=== PATIENT | male | born 1985 | race Caucasian/White ===

== ENCOUNTER 2022-01-10 23:31 | Emergency (ER) | payer BC ==
[2022-01-10 23:59] LABS: ESTIMATED GFR 80 mL/min (>60)
== END 2022-01-11 01:00 | disposition home or self-care (01) ==
LOC: JD.ED 23:31
DX: R07.89 Other chest pain (principal); Z88.1 Allergy status to other antibiotic agents
CPT/HCPCS: 36415; 71045; 71045-26; 80053; 80306; 81003; 84484; 85007; 85027; 93005; 99285

== ENCOUNTER 2022-08-06 19:29 | Emergency (ER) | payer BC ==
[2022-08-06] MEDS ORDERED: Levofloxacin 500 MG Tab PO ONE (22:27)
== END 2022-08-06 22:44 | disposition home or self-care (01) ==
LOC: JD.ED 19:29
DX: N45.1 Epididymitis (principal); Z88.8 Allergy status to other drugs, medicaments and biological substances
CPT/HCPCS: 76870; 81001; 93975; 99283; A9270